=== PATIENT | female | born 1980 | race Caucasian/White ===

== ENCOUNTER 2016-08-27 07:24 | Day surgery (SDC) | payer BC, MEDICAID ==
--- NOTE | 2016-08-19 14:33 | HP ---
PREOPERATIVE HISTORY AND PHYSICAL: DATE OF SURGERY/ADMISSION: 08/27/16 DATE OF OFFICE VISIT/ENCOUNTER: 08/12/16 ATTENDING SURGEON: Nikky De La Rosa MD PRIMARY CARE PROVIDER: Dr. Duarte. PROCEDURE: Right thumb excision mass. CHIEF COMPLAINT: Mass, right thumb. HISTORY OF PRESENT ILLNESS: This is a 36-year-old female, who complains of a painful lump on the dorsal aspect of her right thumb that has been getting larger over the past 3 weeks. She says the pain increases with pressure and she has been using ibuprofen to help decrease the pain. She occasionally has a tingling sensation associated with it especially if she hits it on something. There was no injury that she recalls. No break in her skin. The lump is bothersome enough that she would like to have it removed surgically. PAST MEDICAL HISTORY: 1. Asthma. 2. Hypertension. 3. Cutaneous mastocytosis. PAST SURGICAL HISTORY: 1. Appendectomy. 2. Lumbar spine diskectomy approximately 4 years ago. CURRENT MEDICATIONS: 1. Cozaar 50 mg daily. 2. Ibuprofen 800 mg t.i.d. p.r.n. 3. ProAir HFA q.4 hours p.r.n. 4. Zyrtec Allergy 10 mg daily. ALLERGIES: No known drug allergies. FAMILY MEDICAL HISTORY: Hypertension, emphysema, COPD. 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 She denies tobacco use, recreational drug use, and alcohol use. REVIEW OF SYSTEMS: General: Negative for fevers, chills, or night sweats. No known anesthesia problems. HEENT: Negative for headache, lightheadedness, or syncopal episodes. Integumentary: Negative for abrasions, lesions, or open wounds. Cardiothoracic: Positive for hypertension. Negative for chest pain, palpitations, or edema. Pulmonary: Positive for asthma. Negative for shortness of breath with exertion, chronic cough, or COPD. GI: Negative for nausea, vomiting, diarrhea, constipation, or GERD. : Negative for nocturia, urinary frequency, urgency, history of UTIs, or kidney problems. Musculoskeletal: Positive for current complaint, otherwise negative. Neurological: Negative for paresthesias, numbness, history of seizures, stroke , or epilepsy. Endocrine: Negative for diabetes or thyroid issues. Hematologic : Positive for cutaneous mastocytosis. Negative for easy bruising, anemia, excessive bleeding, or history of DVT. Infectious Disease: Negative for history of MRSA, hepatitis C, or HIV. PHYSICAL EXAMINATION GENERAL: Well-developed, well-nourished, 36-year-old female, in no acute distress. VITAL SIGNS: Height 5 feet 9-1/2 inches, weight 311 pounds, pulse rate 84, blood pressure 130/100. HEENT: Normocephalic, atraumatic. Pupils are equal, round, and reactive to light and accommodation. Extraocular movements are intact. NECK: Supple. No palpable lymph nodes. Throat is clear. PULMONARY: Lungs are clear to auscultation bilaterally. No wheezes, rales, or rhonchi. CARDIOTHORACIC: Regular rate and rhythm. S1 and S2. No murmurs, rubs, or gallops. No edema. ABDOMEN: Positive bowel sounds, soft, nontender. MUSCULOSKELETAL: On exam of her right thumb, she has an approximately 1-cm diameter mass on the dorsal aspect of the IP joint of the right thumb. It is tender to palpation. Positive Tinel's sign. She has active flexion and extension in her thumb that is somewhat decreased. Skin is intact. Neurovascular function is intact. NEUROLOGICAL: Alert and oriented x3. Cranial nerves II through XII are intact. Sensation is intact to light touch. PERIPHERAL VASCULAR: 2+ radial and ulnar pulses. Negative Rickey test. IMAGING STUDIES: AP, lateral, and oblique of the right thumb show no abnormalities. IMPRESSION: Right thumb mass. PLAN: The patient is scheduled to undergo a right thumb excision mass with Dr. De La Rosa on 08/27/16. She will return to the office 10 to 14 days postop for followup and suture removal. A prescription for Ultracet was e-scribed to the patient's pharmacy for postoperative pain management. DALLAS DEE [id number]/[facility] #: [id number] MTDD
[~2016-08-27 07:24] MED LIST: Buffered Lidocaine 1% SYRIN* 3 ML/SYR SYRINGE INTRADERM ONE; Lidocaine 1% INJ* 10 MG/ML 30 ML SDV ONE
[2016-08-27] MEDS ORDERED: Propofol* 10 MG/ML 20 ML BTL IV PUSH ONE (09:13)
[2016-08-27 10:03] VITALS: BP 144/91
--- NOTE | 2016-08-27 23:04 | OP ---
DATE OF OPERATION: 08/27/16 [facility] DATE OF : 76 SURGEON: Nikky De La Rosa MD BALLING HEAD TENDER: DALLAS Valencia ANESTHESIOLOGIST: Corbin Foote DO ANESTHESIA: Local MAC. PRE-OP DIAGNOSIS: Right thumb mass. POST-OP DIAGNOSIS: Right thumb mass. OPERATIVE PROCEDURE: Removal, right thumb mass. ESTIMATED BLOOD LOSS: Zero. TOURNIQUET TIME: About 10 minutes. INDICATION FOR PROCEDURE: Brigida is a 36-year-old female with a painful mass on the dorsal aspect of her right thumb IP joint. She presents for excision. DESCRIPTION OF PROCEDURE: The patient was brought to the operating room, was given a sedation anesthetic of a digital block with 10 cc of 1% plain Lidocaine. Skin of her right hand and forearm was prepped and draped in the usual sterile fashion. The hand and forearm were exsanguinated and the tourniquet elevated to 250 mmHg. A T-shaped incision was made centered over the mass at the IP joint of the thumb. Skin flaps were dissected up off of the mass which appeared to be a ganglion cyst emanating from the IP joint. It was carefully removed and sent for pathology. The IP joint capsule was incised and the underlying osteophyte removed with a rongeur. The wound was irrigated and skin edges were reapproximated with 4-0 nylon sutures. The wound was dressed with Xeroform, 4x4, Webril and Coban. The patient tolerated the procedure well and was brought to the recovery room in good condition. The regional vice president surgical sales , DALLAS Valencia, was essential to the completion of the case providing retraction and positioning during the entirety of the case. [id number]/[facility] #: [id number] [facility]
== END 2016-08-27 09:55 | disposition home or self-care (01) ==
LOC: OREAST 07:24
PROVIDERS: ATTEND Orthopaedic Surgery
DX: M67.441 Ganglion, right hand (principal); J45.909 Unspecified asthma, uncomplicated; I10 Essential (primary) hypertension; Q82.2 Congenital cutaneous mastocytosis
CPT/HCPCS: 88305; J2001; J2704

== ENCOUNTER 2017-02-12 19:01 | Emergency (ER) | payer BC ==
[2017-02-12 19:19] VITALS: BP 160/110
[2017-02-12] MEDS ORDERED: Aspirin Low Dose CHEW TAB* 81 MG PO ONE (19:42)
--- NOTE | 2017-02-20 17:16 | UC ---
Kumar Nicholson Thomas, scribed for Melinda Celeste DO on 02/12/17 at 1938 . Cardiac HPI - HPI Summary HPI Summary: The pt is a 36 yo F presenting to [facility] c/o mid sternal CP and SOB that began today at about 16:00. The pain is described as tightness and pressure. The pain does not radiate. The pt rates the pain 7/10. The pain is constant. The pain is aggravated and alleviated by nothing. The chest pain is not reproducible. The patient has treated the pain with nothing [employer]. She complains of a cough, chills , fever, headache, ear pain, fatigue, and myalgia with onset five days ago. She has been taking Mucinex for her cough. Pt denies N/V, abd pain, dizziness, arm pain, jaw pain, dysuria, rashes, and sore throat. She has a Hx of HTN with medication non-compliance for the last year. At triage her blood pressure was 160/100 and her temperature is 100.8 measured temporally. She also has a Hx of bronchitis. - History of Current Complaint Chief Complaint: UCChestPain Stated Complaint: CHEST PAIN C Time Seen by Provider: 02/12/17 19:21 Hx Obtained From: Patient Hx Last Menstrual Period: 02/18/15 Onset/Duration: Lasting Hours - onset today at 16:00, Still Present Timing: Constant Pain Intensity: 7 Chest Pain Location: Mid Sternal Character: Tightness, Pressure/Squeezing Aggravating Factor(s): Nothing Alleviating Factor(s): Nothing Associated Signs & Symptoms: Positive: Chest Pain, Headaches, SOB, Fever, Cough. Negative: Nausea/Vomiting, Abdominal Pain - Allergy/Home Medications Allergies/Adverse Reactions: Allergies Allergy/AdvReac Type Severity Reaction Status Date / Time WATER FOR BATHING, SWIMMING, Allergy RASH WITH Uncoded 08/27/16 08:15 SHOWER PROLONG USE Home Medications: Home Medications Albuterol HFA INHALER* [Ventolin HFA Inhaler*] 1 puff INH Q4H PRN 02/12/17 [ History Confirmed 02/12/17] Pseudoephedrine-Guaifenesin [Mucinex D 60-600 mg] 1 tab PO 02/12/17 [History] PMH/Surg Hx/FS Hx/Imm Hx Previously Healthy: No - HTN; NEGATIVE: DM - Surgical History Surgical History: Yes Surgery Procedure, Year, and Place[place] [facility] [facility] 2012? - Family History Known Family History: Positive: Cardiac Disease - Social History Alcohol Use: Occasionally Substance Use Type: None Smoking Status (MU): Never Smoked Tobacco - Immunization History Most Recent Influenza Vaccination: unknown Most Recent Tetanus Shot: up to date Most Recent Pneumonia Vaccination: not indicated Review of Systems Constitutional: Fever, Chills, Fatigue ENT: Ear Ache Respiratory: Shortness Of Breath - onset today at 16:00, Cough Cardiovascular: Chest Pain - onset today at 16:00 Musculoskeletal: Myalgia Neurological: Headache Is Patient Immunocompromised?: No All Other Systems Reviewed And Are Negative: Yes Physical Exam Triage Information Reviewed: Yes Appearance: Well-Appearing, Well-Nourished, Obese Vital Signs: Initial Vital Signs Temp 100.8 F 02/12/17 19:16 Pulse 114 02/12/17 19:16 Resp 20 02/12/17 19:16 BP 160/110 02/12/17 19:16 Pulse Ox 96 02/12/17 19:16 Vital Signs Reviewed: Yes Eyes: Positive: Conjunctiva Clear. Negative: Discharge ENT: Positive: Hearing grossly normal. Negative: Muffled/hoarse voice Neck exam: Normal Neck: Positive: Supple Respiratory: Positive: Chest non-tender, Lungs clear, Normal breath sounds, No respiratory distress, No accessory muscle use Cardiovascular: Positive: RRR, No Murmur Abdomen Description: Positive: Nontender, Soft Musculoskeletal Exam: Normal Neurological: Positive: Alert, Muscle Tone Normal Psychological Exam: Normal Psychological: Positive: Age Appropriate Behavior Skin Exam: Normal Skin: Positive: Other - Warm, dry, and normal color Diagnostics - Laboratory Diagnostic Studies Completed/Ordered: EKG obtained at 07:08. Sinus tachycardia at [address] elevations. Re-Evaluation - Re-Evaluation First Eval Re-Evaluation Time: 19:41 Change: Unchanged Comment: She requests that we bring her mother from the waiting room to discuss how the patient will get [place] [facility] [place]. - Assessment/Plan Course Of Treatment: The patient is a 36 y/o female complaining of chest pain and shortness of breath that began today at 16:00. She has been having a cough, fever, and chills for the last five days as well. We will send her [place] [facility] [place] ambulance to rule out ACS and PE. Medications reviewed this visit. High blood pressure noted. - Clinical Impression Provider Diagnoses: cp, sob, r/o pe and acs Discharge - Discharge Plan Condition: Stable Disposition: TRANS HIGHER LVL OF CARE FAC Referrals: Oscar Leger MD [Primary Care Provider] - The documentation as recorded by the Kumar curry Thomas accurately reflects the service I personally performed and the decisions made by , Melinda Celeste DO.
== END 2017-02-12 20:33 | disposition short-term general hospital (02) ==
LOC: UCEAST 19:01
DX: R07.89 Other chest pain (principal); R06.02 Shortness of breath; R05 Cough; R50.9 Fever, unspecified; R51 Headache; H92.09 Otalgia, unspecified ear; R53.83 Other fatigue; M79.1 Myalgia; E66.9 Obesity, unspecified
CPT/HCPCS: 93005; 99213; A9270-GY; G0463

== ENCOUNTER 2017-02-12 20:45 | Observation (INO) | payer BC ==
[2017-02-12] MEDS ORDERED: Albuterol/Ipratropium NEB.SOL* Albuterol 2.5 MG/Ipratropium 0.5 MG 3 ML INH ONE (21:15)
[2017-02-12] MEDS ORDERED: Acetaminophen TAB* 325 MG ONE (21:32)
[2017-02-12 21:36] LABS: Hematocrit 37 % (35-47); Hemoglobin 12.1 g/dl (12.0-16.0); Mean Corpuscular HGB Conc 33 g/dl (31-36); Mean Corpuscular Hemoglobin 27 pg (27-31); Mean Corpuscular Volume 81 fL (80-97); Mean Platelet Volume 9 um3 (7.4-10.4); Red Blood Count 4.51 10^6/ul (4.0-5.4); Red Cell Distribution Width 15 % (10.5-15); White Blood Count 14.6 10^3/ul (3.5-10.8)
[2017-02-12] MEDS ORDERED: Acetaminophen TAB* 325 MG PO ONE ×2 (21:52)
[2017-02-12 21:53] LABS: Albumin 4.2 g/dL (3.2-5.2); BUN/Creatinine Ratio 11.3 (8-20); Calcium 8.7 mg/dL (8.6-10.3); EGFR African American 118.5 (>60); EGFR Non-African American 92.1 (>60); Globulin 3.2 g/dL (2-4); Total Bilirubin 0.5 mg/dL (0.2-1.0); Total Protein 7.4 g/dL (6.4-8.9)
[2017-02-12 21:54] LABS: Troponin I 0.01 ng/mL (<0.04)
--- NOTE | 2017-02-12 21:56 | RAD ---
INDICATION: Cough, shortness of breath, pleuritic chest pain. COMPARISON: Comparison is made with prior chest x-ray study from March 03, 2015. TECHNIQUE: Dual-energy PA and lateral views of the chest were obtained. FINDINGS: The heart is within normal limits in size. Mediastinal and hilar contours appear within normal limits. The lungs are underinflated. There is minimal subsegmental atelectasis at the left lung base. The lungs are otherwise clear. No pleural effusion is seen. IMPRESSION: NO EVIDENCE FOR ACTIVE CARDIOPULMONARY DISEASE.
[2017-02-12 22:13] LABS: Potassium 3.8 mmol/L (3.5-5.0)
[2017-02-12] MEDS ORDERED: Iohexol 350* (CONTRAST) 500 ML MDV IV ONE (22:17)
[2017-02-12] MEDS ORDERED: Enoxaparin(*) 100 MG/ML SYR SUBCUT ONE (23:11)
[2017-02-12] MEDS ORDERED: Nitroglycerin 2% OINT* 1 GM PAK TOPICAL ONE (23:11)
[2017-02-12] MEDS ORDERED: Albuterol HFA INHALER* 8 gm MDI INH PRN (23:47)
[2017-02-13] MEDS ORDERED: Ibuprofen TAB* 600 MG PO PRN (00:17)
[2017-02-13] MEDS ORDERED: Acetaminophen TAB* 325 MG PO PRN (00:17)
[2017-02-13] MEDS: guaiFENesin ER TAB 600 MG PO SCH ×2 (01:34→08:22)
[2017-02-13] MEDS: NS 0.9% 1000 ML* 1,000 ML IV SCH ×2 (02:02→10:17)
--- NOTE | 2017-02-13 02:11 | HP ---
CC: Dr. Leger; Dr. Duarte HISTORY AND PHYSICAL: DATE OF ADMISSION: 02/12/17 PRIMARY CARE PROVIDER: Dr. Leger. CHIEF COMPLAINT: Chest pain and cough. HISTORY OF PRESENT ILLNESS: Brigida Srivastava is a pleasant 36-year-old female with history of cutaneous m astocytosis and asthma, who presented to the hospital complaining of chest pain. The patient stated that she has been having cold symptoms for the past 5 days. Occasionally, she would be febrile. S he stated that her cough is mostly nonproductive. Very rarely she is able to spit up some yellowish sputum. Today the first time at 4 p.m. she developed a chest pain. Her chest pain is localized in her manubrium sternum. She was better when she pushes on the area. It gets worse when she coughs. It is also associated with some shortness of breath and cough that once again was mostly nonproduc tive. She came into the ED for evaluation. Here, the D-dimer was performed and was over 280. A CT angiogram was also performed and showed "images degraded by artifact." There was no clear evidence of pulmonary embolism in the main interlobular and proximal segment of pulmonary arteries, although pulmonary embolism will be difficult to entirely be excluded on the study and consideration should be given for further evaluation with a V/Q scan if possible." At this point, Dr. Brito from the em ergency department recommended for the patient's stay overnight to either have repeated CT angiogram of the chest later on to entirely rule out PE or to have a V/Q scan done. The patient received 1 mg/kg dose of Lovenox in the emergency department per Dr. Brito' order. The patient is going to be placed on overnight observation on telemetry monitored bed. PAST MEDICAL HISTORY: 1. Hypertension. Currently not treated. 2. History of cutaneous mastocytosis. 3. History of asthma. 4. Appendectomy. 5. History of lumbar spine diskectomy approximately 4 years ago. 6. History of right thumb gangrene excision in July of 2016. MEDICATIONS: Include: 1. Albuterol inhaler on a p.r.n. basis. 2. Mucinex. 3. Pseudoephedrine on a p.r.n. basis. FAMILY HISTORY: Positive for hypertension in both parents. 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 She lives with her hu juan, who will be her surrogate. She denies any alcohol, tobacco, or drug use. REVIEW OF SYSTEMS: Please see history of present illness. All the remaining 12 systems were review ed with the patient and were otherwise negative. PHYSICAL EXAMINATION GENERAL: The patient is a pleasant 36-year-old obese female, who is in no acute distress. Alert, a wake, and oriented x3. VITAL SIGNS: Blood pressure 187/67, heart rate of 96 and regular, respiratory rate 25, oxygen satur ation 95% on room air, temperature of 100.1. HEENT: Head: Atraumatic, normocephalic. Eyes: Pupils are equal and reactive to light and accommo dation. Oropharynx clear. Mucosa moist. NECK: Supple. No JVD. No bruits bilaterally. RESPIRATORY: Clear to auscultation bilaterally. CARDIOVASCULAR: Regular rate and rhythm. No murmur. ABDOMEN: Soft, nontender. Bowel sounds are present in all 4 quadrants. EXTREMITIES: There is no edema. Pulses +2 bilaterally. There is no clubbing or cyanosis. NEURO EVALUATION: Speech clear. Cranial nerves II through XII are grossly intact. Motor strength i s 5/5 bilaterally. SKIN: On evaluation of the skin, the patient has cutaneous mastocytosis lesions on her back, they a re chronic as per patient. DIAGNOSTIC STUDIES/LAB DATA: White blood cell count of 14.6, hemoglobin of 12.1, hematocrit of 37, and platelets 270. Sodium is 135, potassium 3.8, chloride 102, carbon dioxide 24, BUN 8, creatinin e 0.71. Liver function tests were unremarkable. Troponin of 0.01. EKG showed sinus tachycardia with a heart rate of 103 beats per minute with diffuse flattening of T- waves. ASSESSMENT AND PLAN: 1. Chest pain. Mostly pleuritic and the patient with history of bronchitis. At this point, the pa jeff is going to be observed on telemetry monitored bed as recommended by the ED physician. She al ready received a full dose of Lovenox for tonight. At this point, I believe the best course of acti on would be for the patient to be observed and rehydrated. In the morning, we can discuss it with o ur radiologist if the best course of action would be repeat CT angiogram of the chest or V/Q scan. 2. In regards to the patient's bronchitis, the patient has mildly elevated temperature and leukocyt osis. She has had nonproductive cough and her oropharynx is grossly clear. At this point, I suspec t this is mostly viral infection. Her flu test was negative. I offered to the patient possibility of treating with antibiotics if she prefers to or supportively treated with ibuprofen and antitussiv e medications. The patient preferred to abstain from antibiotics for the time being. 3. For DVT prophylaxis, the patient is fully anticoagulated as per Dr. Brito in the ED with Loveno x. 4. The patient's code status is full and her surrogate is her . [id number]/[facility] #: [id number]
[2017-02-13 03:56] LABS: Hematocrit 36 % (35-47); Hemoglobin 11.9 g/dl (12.0-16.0); Mean Corpuscular HGB Conc 33 g/dl (31-36); Mean Corpuscular Hemoglobin 27 pg (27-31); Mean Corpuscular Volume 82 fL (80-97); Mean Platelet Volume 8 um3 (7.4-10.4); Red Blood Count 4.39 10^6/ul (4.0-5.4); Red Cell Distribution Width 15 % (10.5-15)
[2017-02-13 04:10] LABS: BUN/Creatinine Ratio 11.5 (8-20); Calcium 8.1 mg/dL (8.6-10.3); EGFR African American 141.2 (>60); EGFR Non-African American 109.8 (>60); Potassium 3.2 mmol/L (3.5-5.0)
--- NOTE | 2017-02-13 07:01 | RAD ---
INDICATION: Elevated d-dimer fever and shortness of breath. COMPARISON: Comparison is made with a prior chest x-ray study of the same day. TECHNIQUE: A CT angiogram of the chest was performed with intravenous following intravenous injection of 88 ml of Omnipaque 350 nonionic contrast. Contiguous axial sections were obtained from the lung apices through the lung bases. Images were reconstructed in the coronal and sagittal planes. FINDINGS: There is suboptimal opacification of the pulmonary arteries in streak artifact limiting evaluation for pulmonary embolism. No central pulmonary embolism is seen. The heart is within normal limits in size. No pericardial effusion is present. The thoracic aorta is normal in caliber and demonstrates homogeneous contrast opacification. No significant enlarged mediastinal or hilar lymph nodes are seen. There is mild dependent bilateral lower lobe subsegmental atelectasis. The lungs are clear. No pleural effusion is seen. No abnormalities are seen on images of the upper abdomen. No significant focal osseous abnormality is seen. IMPRESSION: SIGNIFICANTLY LIMITED STUDY, NO EVIDENCE FOR CENTRAL PULMONARY EMBOLISM.
[2017-02-13] MEDS ORDERED: Losartan TAB* 25 MG PO SCH (09:00)
[2017-02-13] MEDS ORDERED: Albuterol/Ipratropium NEB.SOL* Albuterol 2.5 MG/Ipratropium 0.5 MG 3 ML INH PRN (13:57)
[2017-02-13] MEDS ORDERED: Azithromycin TAB* 250 MG PO ONE (14:01)
--- NOTE | 2017-02-13 14:21 | DCNOTE ---
Subjective Date of Service: 02/13/17 Interval History: Some chest pain with cough. Small amounts of yellow sputum consistently since the onset of this illness. No recent long car or plane trips. 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 Objective Active Medications: Acetaminophen (Tylenol Tab*) 650 mg PO Q4H PRN PRN Reason: FEVER/PAIN Last Admin: 02/13/17 08:21 Dose: 650 mg Albuterol (Ventolin Hfa Inhaler*) 1 puff INH Q4H PRN PRN Reason: WHEEZING Last Admin: 02/13/17 13:03 Dose: 1 puff Albuterol/Ipratropium (Duoneb (Albuterol 2.5 Mg/Ipratropium 0.5 Mg)) 1 neb INH Q4H PRN PRN Reason: SOB/WHEEZING Azithromycin (Zithromax Tab*) 500 mg PO ONCE ONE Stop: 02/13/17 14:02 Guaifenesin (Mucinex*) 1,200 mg PO BID FELIX Last Admin: 02/13/17 08:22 Dose: 1,200 mg Ibuprofen (Motrin Tab*) 600 mg PO Q6H PRN PRN Reason: PAIN Vital Signs 02/12/17 02/13/17 02/13/17 23:46 00:00 00:02 Temperature Pulse Rate 94 101 99 Respiratory 25 23 23 Rate Blood Pressure 104/87 (mmHg) O2 Sat by Pulse 96 96 93 Oximetry 02/13/17 02/13/17 02/13/17 00:30 01:15 04:35 Temperature 97.7 F 98.8 F Pulse Rate 101 91 Respiratory 24 19 16 Rate Blood Pressure 122/77 148/86 134/89 (mmHg) O2 Sat by Pulse 98 96 Oximetry 02/13/17 07:12 Temperature 98.8 F Pulse Rate 100 Respiratory 24 Rate Blood Pressure 162/99 (mmHg) O2 Sat by Pulse 95 Oximetry Oxygen Devices in Use Now: None Appearance: Alert, supine in bed. Appears fatigued. Resp quiet. Color pink, on room air. Eyes: No Scleral Icterus Neck: NL Appearance and Movements; NL JVP, No Thyroid Enlargement, Masses Respiratory: Symmetrical Chest Expansion and Respiratory Effort, Clear to Auscultation, Clear to Percussion Cardiovascular: NL Sounds; No Murmurs; No JVD, RRR, No Edema, - Extremities: No Edema, No Clubbing, Cyanosis, - Skin: No Nodules or Sclerosis - Multiiple 2-4 mm macules on back and legs, - - Multiple 2-4 mm macules back and legs. Diffuse facial eryrthema. Neurological: Alert and Oriented x 3, NL Sensation Result Diagrams: 02/13/17 03:46 02/13/17 03:46 Assess/Plan/Problems-Billing Assessment: - Patient Problems (1) Asthma exacerbation Current Visit: Yes Status: Acute Code(s): J45.901 - UNSPECIFIED ASTHMA WITH (ACUTE) EXACERBATION SNOMED Code(s): 573287766 Comment: Patient has has persistently yellow sputum. Start 5 day course oral azithromycin, first dose (500 mg) here. Patient felt better after ipratropium/albuterol neb tx in ED. Pt will get home nebulizer and the same solution to use q 4 hr PRN. (2) Elevated d-dimer Current Visit: Yes Status: Acute Code(s): R79.89 - OTHER SPECIFIED ABNORMAL FINDINGS OF BLOOD CHEMISTRY SNOMED Code(s): 726793955 Comment: I explained what the CTA showed. I discussed the likelihood of PE and the risk of radiation exposure. She has no calf tenderness or pedal edema, no prolonged sitting episodes. She has an O2 sat of 95% on RA. A large, central PE has been excluded by the CTA. He sx's are well explained by her evident URI. The d-dimer is very non-specific and of little use with a low pretest probability. She was advised to seek immediate medical attention if her condition worsened significantly at home. (3) Cutaneous mastocytosis Current Visit: Yes Status: Acute Code(s): D47.01 - CUTANEOUS MASTOCYTOSIS SNOMED Code(s): 497974773 Comment: Continue cetrizine, fup with Dr. Uribe.
[2017-02-13 15:22] VITALS: BP 139/91
--- NOTE | 2017-02-14 00:05 | DS ---
CC: Dr. Oscar Leger * DISCHARGE SUMMARY: DATE OF ADMISSION: 02/12/17 DATE OF DISCHARGE: 02/13/17 HISTORY OF PRESENT ILLNESS: This 36-year-old woman came to the emergency room because of chest pain and cough. She has been ill for approximately 5 days. She had some fevers at home. She was coughing up small amount of yellow sputum. She says she has a history of asthma, she uses albuterol when needed usually and most days not needing it. She had a D-dimer in the emergency room because she said she was having chest pain. The D-dimer was 283. The patient was given one dose of enoxaparin 1 mg/kg. A CTA scan was done, but it was of technically poor quality due to streaking. The radiologist is able to say there were no central emboli, but could not comment on peripheral emboli. The patient had an albuterol/ipratropium treatment in the emergency room, which she said helped to feel better. She is still feeling quite fatigued. Her temperature in the emergency room was 100.1 and under 99 after that. White blood count was 14.6 with a repeat of 10.0. Chest x-ray in the emergency room showed no evidence of active cardiopulmonary disease. EKG showed sinus tachycardia at 103, borderline T-wave abnormalities, otherwise unremarkable. The patient had no calf tenderness or swelling. She has not been on any recent long car or airplane trips. 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 I discussed with having a possibility of pursuing further the diagnosis of peripheral pulmonary emboli. I explained to her the risks of increased radiation dose from further testing. Clinically, her chest pain is well explained by her upper respiratory infection. Other than the D-dimer, I do not see any evidence to support pulmonary embolism. The D-dimer was very nonspecific and is of very little use in a patient with a low pretest probability of having the disease tested for. The patient chose not to go ahead with further testing whether CTA or V/Q scan. She is being treated with a 5-day course of azithromycin. She will get the first 500 mg dose here. She will get a home nebulizer delivery today and have ipratropium/albuterol solution to use in the nebulizer p.r.n. FINAL DIAGNOSES: 1. Upper respiratory infection. 2. History of asthma. 3. Chest pain. 4. Morbid obesity. 5. Cutaneous mastocytosis. DISCHARGE MEDICATIONS: 1. Azithromycin 250 mg daily for 4 days. 2. Albuterol/ipratropium by nebulizer every 4 hours p.r.n. 3. Guaifenesin ER 1200 mg b.i.d. 4. Losartan 50 mg daily. 5. Acetaminophen 650 mg every 6 hours p.r.n. 6. EpiPen 0.3 mg p.r.n. 7. Cetirizine 10 mg daily. 8. Albuterol inhaler 1 puff every 4 hours p.r.n. [id number]/[facility] #: [id number] [facility]
== END 2017-02-13 16:05 | disposition home or self-care (01) ==
LOC: ED 20:45 → MEDTELE 23:45
PROVIDERS: ADMIT Internal Medicine; ATTEND Internal Medicine
DX: J06.9 Acute upper respiratory infection, unspecified (principal); R07.89 Other chest pain; R05 Cough; R50.9 Fever, unspecified; J45.909 Unspecified asthma, uncomplicated; R06.02 Shortness of breath; R00.0 Tachycardia, unspecified; E66.01 Morbid (severe) obesity due to excess calories; Z79.899 Other long term (current) drug therapy
CPT/HCPCS: 36415; 71020; 71275; 80048; 80053; 83605; 84484; 85025; 85379; 87502; 93005; 94640; 99284; A9270-GY; G0378; J1650; Q9967